=== PATIENT | male | born 1945 | race African-American/Black ===

== ENCOUNTER 2017-07-31 09:59 | Inpatient (IN) | payer MEDICARE, MEDICAID ==
[~2017-07-31] VITALS: Ht 167.6 cm; Wt 77.6 kg
[2017-07-31] MEDS ORDERED: SODIUM CHLORIDE 0.9% 1,000 ML IV ONE ×2 (11:01→11:04)
[2017-07-31] MEDS ORDERED: DEXTROSE 50% WATER 50ML SYRINGE IV ONE ×2 (11:27→11:45)
[2017-07-31 11:31] LABS: BG BASE EXCESS -3.1 mmol/L (-2.0-2.0); BG CARBOXYHEMOGLOBIN 0.1 % (0.5-1.5); BG DEOXYHEMOGLOBIN 4.3 % (0.0-5.0); BG FRACTION INSPIRED OXYGEN 21; BG METHEMOGLOBIN 0.2 % (0.0-1.5); BG OXYGEN SATURATION 95.7 % (92.0-98.5); BG OXYHEMOGLOBIN 95.4 % (94.0-97.0); BG PCO2 39.3 mmHg (35.0-45.0); BG PH 7.365 (7.350-7.450); BG PO2 87.9 mmHg (75.0-100.0); BG SAMPLE SITE RIGHT RADIAL; BG VENT MODE ROOM AIR
[2017-07-31 11:56] LABS: BASOPHILS % 0.7 % (0.0-2.0); EOSINOPHILS % 1.4 % (0.0-5.0); HEMOGLOBIN. 9.5 g/dL (14.0-18.0); LYMPHOCYTES % 18.2 % (20.0-50.0); MEAN CORPUSCULAR HEMOGLOBIN 27.9 pg (28.0-32.0); MEAN CORPUSCULAR VOLUME 85.1 fL (80.0-94.0); MEAN PLATELET VOLUME 7.8 fl (7.4-10.4); MONOCYTES % 11.4 % (2.0-8.0); NEUTROPHILS % 68.3 % (40.0-76.0); PLATELET 221 x1000/uL (130-400); RED CELL DISTRIBUTION WIDTH 15.7 % (11.6-14.6)
[2017-07-31 12:03] LABS: PROTHROMBIN TIME 10.7 sec (9.4-11.6)
[2017-07-31 12:12] LABS: CARBON DIOXIDE 24 mEq/L (21-32); CHLORIDE 110 mEq/L (98-107); CREATINE KINASE 247 IU/L (39-308); TROPONIN I < 0.02 ng/mL (0.00-0.04)
[2017-07-31 13:19] LABS: GLUCOSE URINE NEGATIVE (NEGATIVE); KETONES URINE NEGATIVE (NEGATIVE); LEUKOCYTE ESTERASE URINE NEGATIVE (NEGATIVE); NITRITE URINE NEGATIVE (NEGATIVE); OCCULT BLOOD URINE NEGATIVE (NEGATIVE); PROTEIN URINE NEGATIVE (NEGATIVE); SPECIFIC GRAVITY URINE 1.015 (1.005-1.030); UROBILINOGEN URINE 0.2 E.U./dL (0.2-1.0)
[2017-07-31 13:21] LABS: CLARITY URINE CLEAR (CLEAR); COLOR URINE YELLOW (YELLOW)
[2017-07-31 13:38] LABS: *AMPHETAMINES SCREEN URINE NEGATIVE (NEGATIVE); *BARBITURATES SCREEN URINE NEGATIVE (NEGATIVE); *BENZODIAZEPINES SCREEN URINE NEGATIVE (NEGATIVE); *COCAINE SCREEN URINE NEGATIVE (NEGATIVE); CANNABINOID URINE SCREEN NEGATIVE (NEGATIVE); METHADONE URINE SCREEN NEGATIVE (NEGATIVE); OPIATES URINE SCREEN NEGATIVE (NEGATIVE); PHENCYCLIDINE URINE SCREEN NEGATIVE (NEGATIVE)
[2017-07-31] MEDS ORDERED: IPRATROPIUM/ALBUTEROL 0.5-3(2.5)MG/3ML NEB INH PRN (14:45)
[2017-07-31] MEDS ORDERED: ONDANSETRON HCL 4MG/2ML VIAL IV PRN (14:45)
[2017-07-31] MEDS ORDERED: ACETAMINOPHEN 325MG TABLET PO PRN (14:45)
[2017-07-31] MEDS ORDERED: DOCUSATE SODIUM 100MG CAPSULE PO PRN (14:45)
[2017-07-31] MEDS ORDERED: LORAZEPAM 2MG/ML CPJ IV PRN (14:45)
[2017-07-31] MEDS ORDERED: MAGNESIUM/ALUMINUM HYDROXIDE/SIMETHICONE 30ML UDC PO PRN (14:45)
[2017-07-31] MEDS ORDERED: DEXTROSE 50% WATER 50ML SYRINGE IV PRN (23:15)
[2017-07-31] MEDS ORDERED: SODIUM POLYSTYRENE SULFONATE 15 G/60 ML BOT PO NR (23:15)
[2017-07-31] MEDS ORDERED: ZOLPIDEM TARTRATE 5MG TABLET PO PRN (23:15)
[2017-07-31] MEDS: SODIUM CHLORIDE 0.9% 1,000 ML IV SCH (23:37)
[2017-07-31 23:57] VITALS: BP 178/84
[2017-08-01 00:02] VITALS: BP 184/79
[2017-08-01] MEDS: CLONIDINE 0.1MG TABLET PO PRN ×2 (01:06→12:23)
[2017-08-01 01:09] LABS: CREATINE KINASE 318 IU/L (39-308); CREATINE KINASE MB FRACTION 7.3 ng/mL (0.5-3.6); TROPONIN I < 0.02 ng/mL (0.00-0.04)
[2017-08-01 04:00] VITALS: BP 145/62
[2017-08-01] MEDS: BLOOD SUGAR DIAGNOSTIC STRIP TEST SCH ×4 (06:28→21:51)
[2017-08-01 07:10] LABS: BASOPHILS % 0.5 % (0.0-2.0); HEMATOCRIT. 28.9 % (42.0-52.0); HEMOGLOBIN. 9.7 g/dL (14.0-18.0); LYMPHOCYTES % 21.4 % (20.0-50.0); MEAN CORPUSCULAR HEMOGLOBIN 28.2 pg (28.0-32.0); MEAN CORPUSCULAR VOLUME 84.5 fL (80.0-94.0); MEAN PLATELET VOLUME 8.5 fl (7.4-10.4); MONOCYTES % 12.6 % (2.0-8.0); NEUTROPHILS % 63.5 % (40.0-76.0); PLATELET 217 x1000/uL (130-400); RED BLOOD CELL COUNT 3.42 mill/uL (4.7-6.1); RED CELL DISTRIBUTION WIDTH 15.5 % (11.6-14.6)
[2017-08-01 07:20] LABS: CREATINE KINASE MB FRACTION 6.7 ng/mL (0.5-3.6); TROPONIN I 0.03 ng/mL (0.00-0.04)
[2017-08-01 07:30] VITALS: BP 166/76
[2017-08-01] MEDS: INSULIN LISPRO 100 UNITS/ML SUBCUT SCH ×4 (07:50→21:00)
[2017-08-01] MEDS: ASPIRIN 81MG EC TABLET PO SCH (09:14)
[2017-08-01] MEDS: ENOXAPARIN 30MG/0.3ML SYR SUBCUT SCH (09:14)
[2017-08-01] MEDS ORDERED: OMEP40CA34 PO (10:36)
[2017-08-01] MEDS ORDERED: CARV12.545 PO (10:36)
[2017-08-01] MEDS ORDERED: QUET300T2 PO (10:36)
[2017-08-01] MEDS ORDERED: LISI2.5T47 PO (10:36)
[2017-08-01] MEDS ORDERED: HYDR-4134 PO (10:36)
[2017-08-01] MEDS ORDERED: SITA50TA3 PO (10:36)
[2017-08-01] MEDS ORDERED: CHOL100044 PO (10:36)
[2017-08-01] MEDS ORDERED: ATOR40TA70 PO (10:36)
[2017-08-01] MEDS ORDERED: DIXL10 PO (10:36)
[2017-08-01] MEDS ORDERED: CYCL5TAB PO (10:36)
[2017-08-01] MEDS ORDERED: CLON0.1T PO (10:36)
[2017-08-01] MEDS ORDERED: GLIP5TAB12 PO (10:36)
[2017-08-01] MEDS ORDERED: AMLO10TA80 PO (10:36)
[2017-08-01] MEDS ORDERED: FURO40TA5 PO (10:36)
[2017-08-01] MEDS ORDERED: GABA-531 PO (10:36)
[2017-08-01 10:41] LABS: T4 FREE 0.61 ng/dL (0.76-1.46)
[2017-08-01] MEDS: SODIUM CHLORIDE 0.9% 1,000 ML IV SCH (11:18)
[2017-08-01 11:48] VITALS: BP 195/77
[2017-08-01 15:39] VITALS: BP 164/83
[2017-08-01 15:47] LABS: BASOPHILS % 0.8 % (0.0-2.0); EOSINOPHILS % 1.9 % (0.0-5.0); HEMOGLOBIN. 9.2 g/dL (14.0-18.0); LYMPHOCYTES % 15.8 % (20.0-50.0); MEAN CORPUSCULAR HEMOGLOBIN 27.3 pg (28.0-32.0); MEAN CORPUSCULAR VOLUME 85.6 fL (80.0-94.0); MEAN PLATELET VOLUME 8.4 fl (7.4-10.4); MONOCYTES % 10.3 % (2.0-8.0); NEUTROPHILS % 71.2 % (40.0-76.0); PLATELET 222 x1000/uL (130-400); RED BLOOD CELL COUNT 3.38 mill/uL (4.7-6.1); RED CELL DISTRIBUTION WIDTH 15.8 % (11.6-14.6)
[2017-08-01] MEDS ORDERED: MEDICATION NOT ON FORMULARY EA (Quetiapine Fumarate (Seroquel) 300 MG) PO SCH (17:00)
[2017-08-01] MEDS ORDERED: CYCLOBENZAPRINE HCL 5 MG PO SCH (17:00)
[2017-08-01] MEDS ORDERED: CARVEDILOL 12.5MG TABLET PO SCH (17:00)
[2017-08-01] MEDS: CYCLOBENZAPRINE 10MG TABLET PO SCH (18:12)
[2017-08-01] MEDS: GABAPENTIN 300MG CAPSULE PO SCH (18:12)
[2017-08-01] MEDS: ATORVASTATIN CALCIUM 40MG TABLET PO SCH (18:12)
[2017-08-01 20:57] VITALS: BP 161/74
[2017-08-01] MEDS: AMLODIPINE 5MG TABLET PO SCH (21:50)
[2017-08-01] MEDS: CLONIDINE 0.2MG TABLET PO SCH (21:51)
[2017-08-01] MEDS: QUETIAPINE FUMARATE 100MG TABLET PO SCH (21:51)
[2017-08-02] VITALS: BP 124/68
[2017-08-02] MEDS: SODIUM CHLORIDE 0.9% 1,000 ML IV SCH ×2 (00:45→14:32)
[2017-08-02 04:00] VITALS: BP_SYST 133; BP_SYST 134; BP_DIAS 47; BP_DIAS 74
[2017-08-02] MEDS: CLONIDINE 0.2MG TABLET PO SCH ×3 (06:11→21:29)
[2017-08-02] MEDS: OMEPRAZOLE 20MG CAPSULE EXTENDED RELEASE PO SCH (06:11)
[2017-08-02] MEDS: BLOOD SUGAR DIAGNOSTIC STRIP TEST SCH ×4 (06:27→21:17)
[2017-08-02 06:40] LABS: BASOPHILS % 0.6 % (0.0-2.0); EOSINOPHILS % 2.5 % (0.0-5.0); HEMATOCRIT. 26.8 % (42.0-52.0); HEMOGLOBIN. 8.8 g/dL (14.0-18.0); LYMPHOCYTES % 31.5 % (20.0-50.0); MEAN CORPUSCULAR HEMOGLOBIN 27.9 pg (28.0-32.0); MEAN CORPUSCULAR VOLUME 85.3 fL (80.0-94.0); MEAN PLATELET VOLUME 8.4 fl (7.4-10.4); MONOCYTES % 12.4 % (2.0-8.0); PLATELET 203 x1000/uL (130-400); RED BLOOD CELL COUNT 3.14 mill/uL (4.7-6.1); RED CELL DISTRIBUTION WIDTH 15.5 % (11.6-14.6)
[2017-08-02] MEDS: INSULIN LISPRO 100 UNITS/ML SUBCUT SCH ×4 (07:49→21:00)
[2017-08-02 08:00] VITALS: BP 123/55
[2017-08-02] MEDS ORDERED: MEDICATION NOT ON FORMULARY EA (Sitagliptin Phosphate (Januvia) 50 MG) PO SCH (09:00)
[2017-08-02] MEDS ORDERED: AMLODIPINE 10MG TABLET PO SCH (09:00)
[2017-08-02] MEDS ORDERED: OXYBUTYNIN CHLORIDE 10 MG PO SCH (09:00)
[2017-08-02] MEDS ORDERED: MEDICATION NOT ON FORMULARY EA (Omeprazole 40 MG) PO SCH (09:00)
[2017-08-02] MEDS: ENOXAPARIN 30MG/0.3ML SYR SUBCUT SCH (10:09)
[2017-08-02] MEDS: GLIPIZIDE 5MG TABLET PO SCH (10:10)
[2017-08-02] MEDS: CYCLOBENZAPRINE 10MG TABLET PO SCH ×2 (10:10→17:41)
[2017-08-02] MEDS: HYDRALAZINE HCL 25MG TABLET PO SCH (10:10)
[2017-08-02] MEDS: OXYBUTYNIN CHLORIDE 5MG TABLET PO SCH (10:10)
[2017-08-02] MEDS: ATORVASTATIN CALCIUM 40MG TABLET PO SCH (10:11)
[2017-08-02] MEDS: CHOLECALCIFEROL (D3) 1000 UNIT TABLET PO SCH (10:11)
[2017-08-02] MEDS: ASPIRIN 81MG EC TABLET PO SCH (10:11)
[2017-08-02] MEDS: AMLODIPINE 5MG TABLET PO SCH ×2 (10:11→21:29)
[2017-08-02] MEDS: FUROSEMIDE 40MG TABLET PO SCH (10:12)
[2017-08-02] MEDS: LINAGLIPTIN 5MG TABLET PO SCH (10:12)
[2017-08-02] MEDS: GABAPENTIN 300MG CAPSULE PO SCH ×3 (10:12→17:41)
[2017-08-02 12:00] VITALS: BP 124/59
[2017-08-02 16:00] VITALS: BP 128/55
[2017-08-02 20:00] VITALS: BP 139/65
[2017-08-02] MEDS: QUETIAPINE FUMARATE 100MG TABLET PO SCH (21:29)
[2017-08-03 00:04] VITALS: BP 122/66
[2017-08-03 04:00] VITALS: BP 92/59
[2017-08-03] MEDS: SODIUM CHLORIDE 0.9% 1,000 ML IV SCH ×3 (04:44→21:56)
[2017-08-03] MEDS: CLONIDINE 0.2MG TABLET PO SCH ×3 (06:00→22:23)
[2017-08-03] MEDS: BLOOD SUGAR DIAGNOSTIC STRIP TEST SCH ×4 (06:15→21:00)
[2017-08-03] MEDS: OMEPRAZOLE 20MG CAPSULE EXTENDED RELEASE PO SCH (06:16)
[2017-08-03] MEDS: INSULIN LISPRO 100 UNITS/ML SUBCUT SCH ×4 (07:50→21:00)
[2017-08-03 08:00] VITALS: BP 143/54
[2017-08-03] MEDS: GLIPIZIDE 5MG TABLET PO SCH (08:53)
[2017-08-03] MEDS: OXYBUTYNIN CHLORIDE 5MG TABLET PO SCH ×2 (08:53→18:28)
[2017-08-03] MEDS: ASPIRIN 81MG EC TABLET PO SCH (08:53)
[2017-08-03] MEDS: CYCLOBENZAPRINE 10MG TABLET PO SCH ×2 (08:53→17:00)
[2017-08-03] MEDS: ENOXAPARIN 30MG/0.3ML SYR SUBCUT SCH (08:53)
[2017-08-03] MEDS: ATORVASTATIN CALCIUM 40MG TABLET PO SCH (08:53)
[2017-08-03] MEDS: HYDRALAZINE HCL 25MG TABLET PO SCH (08:54)
[2017-08-03] MEDS: LINAGLIPTIN 5MG TABLET PO SCH (08:55)
[2017-08-03] MEDS: FERROUS SULFATE 325MG TABLET PO SCH ×3 (08:55→18:28)
[2017-08-03] MEDS: CHOLECALCIFEROL (D3) 1000 UNIT TABLET PO SCH (08:55)
[2017-08-03] MEDS: GABAPENTIN 300MG CAPSULE PO SCH ×3 (08:56→18:28)
[2017-08-03] MEDS: FUROSEMIDE 40MG TABLET PO SCH (08:56)
[2017-08-03] MEDS: AMLODIPINE 5MG TABLET PO SCH ×2 (08:57→22:24)
[2017-08-03 12:00] VITALS: BP 129/67
[2017-08-03 16:03] VITALS: BP 115/57
[2017-08-03 20:00] VITALS: BP 149/72
[2017-08-03] MEDS: QUETIAPINE FUMARATE 100MG TABLET PO SCH (22:24)
[2017-08-04] VITALS: BP 113/56
[2017-08-04 04:00] VITALS: BP 131/56
[2017-08-04] MEDS ORDERED: GLIPIZIDE XL 2.5MG TABLET PO SCH (07:50)
[2017-08-04] MEDS: INSULIN LISPRO 100 UNITS/ML SUBCUT SCH (07:50)
[2017-08-04] MEDS: BLOOD SUGAR DIAGNOSTIC STRIP TEST SCH ×2 (08:14→12:22)
[2017-08-04] MEDS: FERROUS SULFATE 325MG TABLET PO SCH (08:33)
[2017-08-04] MEDS: ATORVASTATIN CALCIUM 40MG TABLET PO SCH (08:34)
[2017-08-04] MEDS: CHOLECALCIFEROL (D3) 1000 UNIT TABLET PO SCH (08:34)
[2017-08-04] MEDS: ASPIRIN 81MG EC TABLET PO SCH (08:34)
[2017-08-04] MEDS: HYDRALAZINE HCL 25MG TABLET PO SCH (08:34)
[2017-08-04] MEDS: GABAPENTIN 300MG CAPSULE PO SCH (08:34)
[2017-08-04] MEDS: OMEPRAZOLE 20MG CAPSULE EXTENDED RELEASE PO SCH (08:36)
[2017-08-04] MEDS: CYCLOBENZAPRINE 10MG TABLET PO SCH (08:36)
[2017-08-04] MEDS: AMLODIPINE 5MG TABLET PO SCH (08:36)
[2017-08-04] MEDS: OXYBUTYNIN CHLORIDE 5MG TABLET PO SCH (08:37)
[2017-08-04] MEDS: FUROSEMIDE 40MG TABLET PO SCH (08:37)
[2017-08-04] MEDS: ENOXAPARIN 30MG/0.3ML SYR SUBCUT SCH (08:38)
[2017-08-04] MEDS ORDERED: LINAGLIPTIN 5MG TABLET PO SCH (09:00)
[2017-08-04 09:41] LABS: BASOPHILS % 0.4 % (0.0-2.0); EOSINOPHILS % 1.4 % (0.0-5.0); HEMOGLOBIN. 9.2 g/dL (14.0-18.0); LYMPHOCYTES % 15.9 % (20.0-50.0); MEAN CORPUSCULAR HEMOGLOBIN 28.1 pg (28.0-32.0); MEAN CORPUSCULAR VOLUME 85.4 fL (80.0-94.0); MEAN PLATELET VOLUME 7.7 fl (7.4-10.4); MONOCYTES % 6.8 % (2.0-8.0); NEUTROPHILS % 75.5 % (40.0-76.0); PLATELET 215 x1000/uL (130-400); RED BLOOD CELL COUNT 3.28 mill/uL (4.7-6.1); RED CELL DISTRIBUTION WIDTH 15.2 % (11.6-14.6)
[2017-08-04 10:11] VITALS: BP 139/63
== END 2017-08-04 14:10 | DRG 682 ==
LOC: ER 12:59 → 6WST 13:00 → ER 13:33 → CANRESERV 19:06 → ENRESERV 19:06
PROVIDERS: ADMIT Internal Medicine; ATTEND Internal Medicine
DX: N17.9 Acute kidney failure, unspecified (principal); G92 Toxic encephalopathy; E46 Unspecified protein-calorie malnutrition; E11.22 Type 2 diabetes mellitus with diabetic chronic kidney disease; W18.39XA Other fall on same level, initial encounter; E87.5 Hyperkalemia; D50.9 Iron deficiency anemia, unspecified; E11.649 Type 2 diabetes mellitus with hypoglycemia without coma; E78.5 Hyperlipidemia, unspecified; E86.0 Dehydration; F03.90 Unspecified dementia, unspecified severity, without behavioral disturbance, psychotic disturbance, mood disturbance, and anxiety; I10 Essential (primary) hypertension; I45.10 Unspecified right bundle-branch block; I25.10 Atherosclerotic heart disease of native coronary artery without angina pectoris; N18.9 Chronic kidney disease, unspecified; Y93.89 Activity, other specified; Y92.89 Other specified places as the place of occurrence of the external cause; Y99.8 Other external cause status; Z79.82 Long term (current) use of aspirin; Z79.899 Other long term (current) drug therapy; Z79.84 Long term (current) use of oral hypoglycemic drugs; Z86.73 Personal history of transient ischemic attack (TIA), and cerebral infarction without residual deficits; I25.2 Old myocardial infarction; Z68.27 Body mass index [BMI] 27.0-27.9, adult
CPT/HCPCS: 36415; 36600; 70450; 70551; 71010; 76770; 80048; 80053; 80061; 80305; 81003; 82375; 82390; 82550; 82553; 82728; 82805; 82962; 83540; 83550; 83605; 83735; 84439; 84443; 84481; 84484; 85025; 85044; 85610; 87040; 93005; 93306; 93970; 96360; 96361; 97112; 97116; 97162; 97166; 97530; 97535; 99291; C1893; J1650; J1815; J7030